=== PATIENT | female | born 1995 | race Caucasian/White ===

== ENCOUNTER 2017-09-22 21:16 | Emergency (ER) | payer OTHER ==
[2017-09-22] MEDS: ONDANSETRON 4 MG ORAL DISINTEGRATING TAB (S0181) PO (23:18)
[2017-09-23 00:04] LABS: INFLUENZA A AMPLIFICATION POSITIVE (NEGATIVE); INFLUENZA B AMPLIFICATION NEGATIVE (NEGATIVE)
== END 2017-09-23 00:50 | disposition home or self-care (01) ==
LOC: M ED 21:16
DX: J09.X2 Influenza due to identified novel influenza A virus with other respiratory manifestations (principal); E66.9 Obesity, unspecified; Z98.890 Other specified postprocedural states
CPT/HCPCS: 87502